=== PATIENT | female | born 1945 | race Caucasian/White ===

== ENCOUNTER → 2016-10-08 | Outpatient (CLI) | payer MEDICARE, BC | END | disposition home or self-care (01) | LOC: PCVCCLINIC 12:00 | PROVIDERS: ATTEND Internal Medicine Cardiovascular Disease | DX: I48.2 Chronic atrial fibrillation (principal); I10 Essential (primary) hypertension; E78.01 Familial hypercholesterolemia; M19.90 Unspecified osteoarthritis, unspecified site; Z86.73 Personal history of transient ischemic attack (TIA), and cerebral infarction without residual deficits; Z90.710 Acquired absence of both cervix and uterus | CPT/HCPCS: 93005; G0463 ==

== ENCOUNTER → 2016-10-08 | Outpatient (CLI) | payer MEDICARE, BC ==
--- NOTE | 2016-10-08 15:07 | PCVCIMAG ---
APPROVED REPORT Study performed: 10/08/2016 10:20:26 EXAM: Comprehensive 2D, Doppler, and color-flow Echocardiogram Patient Location: Echo lab Status: routine BSA: 2.08 HR: 86 bpmBP: 128/94 mmHg Rhythm: Atrial Fibrillation Other Information Study Quality: Adequate Indications Atrial Fibrillation Hypertension/HDD TIA, BIATRIAL ENLARGEMENT, 2D Dimensions IVSd: 9.65 (7-11mm)LVOT Diam: 20.19 (18-24mm) LVDd: 39.10 mm PWd: 11.70 (7-11mm)Ascending Ao: 33.60 (22-36mm) LVDs: 30.38 (25-40mm) Left Atrium: 44.51 (27-40mm) Aortic Root: 26.84 mm LV Single Plane 4CH: 51.73 % LV Single Plane 2CH: 52.82 %Hu's LVEF: 52.28 % Biplane EF: 51.1 % Volumes Left Atrial Volume (Systole) Single Plane 4CH: 137.97 mLSingle Plane 2CH: 98.80 mL Biplane LA Volume: 130.00 mLLA ESV Index: 62.00 mL/m2 Aortic Valve AoV Peak Herbert.: 1.26 m/s AO Peak Gr.: 7.20 mmHgLVOT Max P.59 mmHg LVOT Max V: 0.80 m/s TUNDE Vmax: 2.03 cm2 Mitral Valve MV Decel. Time: 197.81 ms MV E Max Herbert.: 0.69 m/s MV PHT: 63.50 ms MVA (PHT): 3.46 cm2 IVRT: 103.81 ms TDI E/Lateral E': 5.31E/Medial E': 7.67 Medial E' Herbert.: 0.09 m/s Lateral E' Herbert.: 0.13 m/s Pulmonary Valve PV Peak Herbert.: 0.88 m/sPV Peak Gr.: 3.10 mmHg Tricuspid Valve TR Peak Herbert.: 2.40 m/s TR Peak Gr.: 22.98 mmHg TV Vmax: 0.75 m/sPA Pressure: 30.00 mmHg Left Ventricle The left ventricle is normal size. There is normal LV segmental wall motion. Mild concentric left ventricular hypertrophy. Left ventricular systolic function is low normal. LVEF is 50-55%. This study is not technically sufficient to allow evaluation of the LV diastolic function due to atrial fibrillation. Right Ventricle The right ventricle is normal size. The right ventricular systolic function is normal. Atria Left atrium is severely dilated. Right atrium is moderately dilated. Aortic Valve The aortic valve is normal in structure. No aortic regurgitation is present. There is no aortic valvular stenosis. Mitral Valve The mitral valve is normal in structure. There is no mitral valve regurgitation noted. No evidence of mitral valve stenosis. Tricuspid Valve The tricuspid valve is normal in structure. Mild tricuspid regurgitation with a PA pressure of 30 mmHg Pulmonic Valve The pulmonary valve is normal in structure. There is no pulmonic valvular regurgitation. Great Vessels The aortic root is normal in size. The ascending aorta is normal in size. IVC is normal in size and collapses with >50% inspiration Pericardium There is no pericardial effusion. There is no pleural effusion. <Conclusion> Left ventricular systolic function is low normal. Mild concentric left ventricular hypertrophy. LVEF is 50-55%. This study is not technically sufficient to allow evaluation of the LV diastolic function due to atrial fibrillation. The right ventricle is normal size. Left atrium is severely dilated. Right atrium is moderately dilated. The aortic valve is normal in structure. There is no mitral valve regurgitation noted. Mild tricuspid regurgitation with a PA pressure of 30 mmHg There is no pericardial effusion.
== END | disposition home or self-care (01) ==
LOC: PCVCIMAG 10:06
PROVIDERS: ATTEND Internal Medicine Cardiovascular Disease
DX: I07.1 Rheumatic tricuspid insufficiency (principal); I48.2 Chronic atrial fibrillation; I10 Essential (primary) hypertension; E78.00 Pure hypercholesterolemia, unspecified; E78.1 Pure hyperglyceridemia; G45.9 Transient cerebral ischemic attack, unspecified; M19.90 Unspecified osteoarthritis, unspecified site; Z90.710 Acquired absence of both cervix and uterus; Z79.899 Other long term (current) drug therapy
CPT/HCPCS: 93005; 93306; G0463

== ENCOUNTER → 2017-07-08 | Outpatient (CLI) | payer MEDICARE, BC | END | disposition home or self-care (01) | LOC: PCVCCLINIC 11:04 | DX: I48.2 Chronic atrial fibrillation (principal); I10 Essential (primary) hypertension; E78.00 Pure hypercholesterolemia, unspecified; G45.9 Transient cerebral ischemic attack, unspecified; E78.1 Pure hyperglyceridemia; Z79.899 Other long term (current) drug therapy | CPT/HCPCS: 93005; G0463 ==

== ENCOUNTER → 2018-04-15 | Outpatient (CLI) | payer MEDICARE, BC ==
--- NOTE | 2018-04-15 11:39 | PCVCIMAG ---
APPROVED REPORT Study performed: 04/15/2018 09:04:21 EXAM: Comprehensive 2D, Doppler, and color-flow Echocardiogram Patient Location: Echo lab Room #: 2Status: routine BSA: 2.05 HR: 83 bpmBP: 130/78 mmHg Rhythm: Atrial Fibrillation Other Information Study Quality: Good Risk Factors: Cardiac Risk Factors: HTN, Hyperlipidemia Indications Atrial Fibrillation Hypertension/HDD 2D Dimensions IVSd: 12.00 (7-11mm)LVOT Diam: 21.45 (18-24mm) LVDd: 29.72 mm PWd: 12.90 (7-11mm)Ascending Ao: 37.90 (22-36mm) LVDs: 18.93 (25-40mm) Left Atrium: 55.07 (27-40mm) Aortic Root: 28.12 mm LV Single Plane 4CH: 51.94 % LV Single Plane 2CH: 52.49 % Biplane EF: 53.7 % Volumes Left Atrial Volume (Systole) Single Plane 4CH: 135.96 mLSingle Plane 2CH: 76.36 mL Aortic Valve AoV Peak Herbert.: 1.35 m/s AO Peak Gr.: 7.89 mmHgLVOT Max P.69 mmHg LVOT Max V: 0.96 m/s TUNDE Vmax: 2.57 cm2 Mitral Valve MV E Max Herbert.: 0.58 m/s MV PHT: 67.60 ms MVA (PHT): 3.25 cm2 IVRT: 103.81 ms Pulmonary Valve PV Peak Herbert.: 0.87 m/sPV Peak Gr.: 3.03 mmHg Pulmonary Vein P Vein S: 0.16 m/s Tricuspid Valve TR Peak Herbert.: 2.33 m/s TR Peak Gr.: 21.68 mmHg TV Vmax: 0.81 m/sPA Pressure: 29.00 mmHg Left Ventricle The left ventricle is normal size. There is normal LV segmental wall motion. Mild concentric left ventricular hypertrophy. Left ventricular systolic function is normal. The left ventricular ejection fraction is within the normal range. LVEF is 50-55%. This study is not technically sufficient to allow evaluation of the LV diastolic function due to atrial fibrillation. Right Ventricle The right ventricle is normal size. The right ventricular systolic function is normal. Atria Left atrium is severely dilated. The right atrium size is normal. Aortic Valve Aortic valve is trileaflet. No aortic regurgitation is present. There is no aortic valvular stenosis. Mitral Valve The mitral valve is normal in structure. There is no mitral valve regurgitation noted. No evidence of mitral valve stenosis. Tricuspid Valve The tricuspid valve is normal in structure. Trace tricuspid regurgitation with a PA pressure of 29 mmHg. No pulmonary hypertension. Pulmonic Valve The pulmonary valve is normal in structure. Trace to mild pulmonic regurgitation. Great Vessels The aortic root is normal in size. The ascending aorta is normal in size. Aortic arch is normal in caliber. IVC is normal in size and collapses >50% with inspiration. Pericardium There is no pericardial effusion. There is no pleural effusion. <Conclusion> Mild concentric left ventricular hypertrophy. LVEF is 50-55%. The right ventricle is normal size. Left atrium is severely dilated. Aortic valve is trileaflet. Aortic valve is trileaflet. There is no mitral valve regurgitation noted. Trace tricuspid regurgitation with a PA pressure of 29 mmHg. No pulmonary hypertension. The aortic root is normal in size. There is no pericardial effusion.
== END | disposition home or self-care (01) ==
LOC: PCVCIMAG 12:46
PROVIDERS: ATTEND Internal Medicine Cardiovascular Disease
DX: I48.2 Chronic atrial fibrillation (principal); I11.9 Hypertensive heart disease without heart failure; E78.00 Pure hypercholesterolemia, unspecified; E78.1 Pure hyperglyceridemia; D68.59 Other primary thrombophilia; Z79.899 Other long term (current) drug therapy
CPT/HCPCS: 93005; 93306; G0463

== ENCOUNTER → 2018-10-14 | Outpatient (CLI) | payer MEDICARE, BC | END | disposition home or self-care (01) | LOC: PCVCCLINIC 11:29 | PROVIDERS: ATTEND Internal Medicine Cardiovascular Disease | DX: I48.2 Chronic atrial fibrillation (principal); E78.00 Pure hypercholesterolemia, unspecified; I10 Essential (primary) hypertension; D68.59 Other primary thrombophilia | CPT/HCPCS: 93005; G0463 ==